=== PATIENT | male | born 1940 | race African-American/Black ===

== ENCOUNTER 2017-10-12 13:21 | Inpatient (IN) | payer MEDICARE, BC ==
[~2017-10-12] VITALS: Ht 185.4 cm; Wt 65.9 kg
[2017-10-12 15:43] LABS: BASOPHILS % (AUTO) 1.2 % (0.0-2.0); EOSINOPHILS % (AUTO) 0.5 % (0.0-3.0); HEMATOCRIT 41.8 % (42.0-52.0); HEMOGLOBIN 14.3 G/DL (14.2-18.0); LYMPHOCYTES % (AUTO) 23.1 % (20.0-45.0); MEAN CORPUSCULAR VOLUME 89 FL (80-99); MONOCYTES % (AUTO) 9.3 % (1.0-10.0); NEUTROPHILS % (AUTO) 65.9 % (45.0-75.0); PLATELET COUNT 141 K/UL (150-450); RED BLOOD COUNT 4.71 M/UL (4.70-6.10); RED CELL DISTRIBUTION WIDTH 11.5 % (11.6-14.8); WHITE BLOOD COUNT 3.6 K/UL (4.8-10.8)
[2017-10-12 16:28] LABS: ALANINE AMINOTRANSFERASE 45 U/L (12-78); ALBUMIN 4.2 G/DL (3.4-5.0); ALBUMIN/GLOBULIN RATIO 0.9 (1.0-2.7); ALKALINE PHOSPHATASE 57 U/L (46-116); ANION GAP 7 mmol/L (5-15); ASPARTATE AMINO TRANSFERASE 22 U/L (15-37); BILIRUBIN,TOTAL 0.5 MG/DL (0.2-1.0); BLOOD UREA NITROGEN 11 mg/dL (7-18); CALCIUM 9.4 MG/DL (8.5-10.1); CARBON DIOXIDE 29 MMOL/L (21-32); CHLORIDE 98 MMOL/L (98-107); CREATININE 0.7 MG/DL (0.55-1.30); POTASSIUM 4.1 MMOL/L (3.5-5.1); SODIUM 134 MMOL/L (136-145)
[2017-10-12] MEDS ORDERED: METOPROLOL SUCC25 MG ORAL (17:34)
[2017-10-12] MEDS ORDERED: PLAVIX75 MG PO (17:34)
[2017-10-12] MEDS ORDERED: SIMVASTATIN20 MG ORAL (17:34)
[2017-10-12] MEDS ORDERED: KLONOPIN0.5 MG ORAL (17:34)
[2017-10-12] MEDS ORDERED: ROZEREM8 MG PO (17:34)
[2017-10-12] MEDS ORDERED: ZANTAC150 MG ORAL (17:34)
[2017-10-12] MEDS ORDERED: VASOTEC20 MG ORAL (17:34)
[2017-10-12] MEDS ORDERED: CASODEX50 MG ORAL (17:34)
[2017-10-12] MEDS: Metoprolol Succinate XL 25mg tab ORAL SCH (19:00)
[2017-10-12 20:00] VITALS: BP 175/102
[2017-10-12] MEDS ORDERED: Donepezil 10mg tab ORAL SCH (21:00)
[2017-10-12 23:35] LABS: APPEARANCE,URINE CLEAR; BILIRUBIN, URINE NEGATIVE (NEGATIVE); COLOR,URINE PALE YELLOW; GLUCOSE, URINE (UA) NEGATIVE (NEGATIVE); KETONES,URINE NEGATIVE (NEGATIVE); LEUKOCYTE ESTERASE ,URINE NEGATIVE (NEGATIVE); NITRITE,URINE NEGATIVE (NEGATIVE); PH,URINE 7 (4.5-8.0); PROTEIN,URINE NEGATIVE (NEGATIVE); UROBILINOGEN,URINE NORMAL MG/DL (0.0-1.0)
[2017-10-13] VITALS: BP 148/85
[2017-10-13] MEDS ORDERED: Zolpidem 5mg tab ORAL PRN (00:15)
[2017-10-13 04:00] VITALS: BP 167/97
[2017-10-13] MEDS: HydrALAZINE 25mg tab ORAL PRN (04:46)
--- NOTE | 2017-10-13 05:00 | History and Physical Report ---
DATE OF ADMISSION: 10/12/2017 REASON FOR ADMISSION: Hypertensive urgency. HISTORY OF PRESENT ILLNESS: This is a 77-year-old male. He lives at home with his . He has a longstanding history of hypertensive cardiomyopathy and generalized atherosclerosis and has been on a medical therapy for many years that has kept his cardiovascular parameters quite stable. Of concern, his labile blood pressure over the past few weeks as noted by his based on home monitoring. He was seen in my office and continued to have labile blood pressure despite increasing medications and hospitalization has been initiated. The patient has been fully compliant with medications and diet. He has had increasing stress in his life over the past month. Specifically, he is having financial issues and problems with his home ownership and has been unable to sleep most nights due to what he perceives as monitoring of his home by police and investigators. PAST MEDICAL HISTORY: Includes hyperlipidemia, peripheral artery disease, atherosclerotic cardiovascular disease, history of cerebrovascular accident, and hypertension with hypertensive heart disease. ALLERGIES: Terazosin. FAMILY HISTORY: Noncontributory. SOCIAL HISTORY: Negative for smoking, alcohol, or substance abuse. MEDICATIONS: Prior to admission, reviewed and reconciled. REVIEW OF SYSTEMS: No fevers or chills. No cough. No sputum production. No history of blood clots in the legs or asthma. He has had a prior stroke with no residual. There is no history of seizures. He has not had any change in bowel habits. He does have prostatic hypertrophy. There is a history of prostate cancer in remission. There is no history of diabetes or thyroid impairment. History of mild carotid plaquing based on carotid duplex scan performed in the last year. PHYSICAL EXAMINATION: GENERAL: The patient is well developed, well nourished, no distress. Somewhat anxious. VITAL SIGNS: Blood pressure 188/102, pulse 60, respirations 20, and afebrile. HEENT: Normocephalic, atraumatic. Conjunctivae pink. Sclerae are anicteric. Oropharynx clear. Mucous membranes moist. NECK: Supple. Jugular venous pressure normal. Carotid upstrokes without delay. LUNGS: Clear. CHEST WALL: Without deformity. CARDIAC: Regular rhythm and rate. Normal S1, S2 with a fourth heart sound. ABDOMEN: Soft, nontender. No bruits. EXTREMITIES: No edema. NEUROLOGIC: Nonfocal. LABORATORY AND DIAGNOSTIC DATA: EKG as an outpatient revealed sinus rhythm with no acute abnormality. Echocardiogram yesterday at my office, normal ejection fraction, concentric hypertrophy, and minimal degenerative valve disease with no pulmonary hypertension. LABORATORY DATA: Laboratories pending. IMPRESSION: 1. Hypertensive urgency. 2. History of hyperlipidemia. 3. Generalized atherosclerosis. 4. History of cerebrovascular accident. 5. Anxiety. PLAN: 1. Cardiac monitoring. 2. Stepwise titration of antihypertensives. 3. Anxiolytics. 4. Psychiatric consultation. 5. Salt restriction. 6. DVT prophylaxis with subcutaneous heparin once blood pressure parameters have been stabilized. Rayo Carrillo M.D. DR: MELVI JOB#: [id number] CC:
[2017-10-13 08:00] VITALS: BP 147/89
[2017-10-13] MEDS: Aspirin Baby 81mg ORAL SCH (08:48)
[2017-10-13] MEDS: Metoprolol Succinate XL 25mg tab ORAL SCH (08:50)
[2017-10-13 12:00] VITALS: BP 156/88
--- NOTE | 2017-10-13 12:57 | Consultation ---
History of Present Illness General Date patient seen: Oct 13, 2017 Present Illness HPI 77-year-old male with hx of depression and anxiety, hypertensive, cardiomyopathy and generalized atherosclerosis. The pts was present. the pt was hard of hearing and per the pt has outburst of anger. In addition, the pt doesnt sleep well and stated that last night he was trowing up due to a new medication he took. Allergies: Coded Allergies: TERAZOSIN (Verified Allergy, Unknown, Hives, 10/12/17) Medication History Scheduled Bicalutamide (Casodex), 50 MG ORAL DAILY, (Reported) Clonazepam* (Klonopin*), 0.5 MG ORAL Q8HR, (Reported) Clopidogrel Bisulfate* (Plavix*), 75 MG PO DAILY, (Reported) Enalapril Maleate* (Vasotec*), 20 MG ORAL EVERY 12 HOURS, (Reported) Metoprolol Succinate* (Metoprolol Succinate*), 25 MG ORAL DAILY, (Reported) Ranitidine Hcl* (Zantac*), 150 MG ORAL TWICE A DAY, (Reported) Simvastatin (Zocor), 20 MG ORAL BEDTIME, (Reported) Miscellaneous Medications Ramelteon (Rozerem), 8 MG PO, (Reported) Patient History Limited by: medical condition History Provided By: Patient, Family Member, Medical Record, PMD Healthcare decision maker N Resuscitation status Full Code Advanced Directive on File Past Medical/Surgical History Past Medical/Surgical History: (1) Hypertensive urgency Review of Systems Psychiatric: Reports: prior hx, anxiety, depressed feelings Physical Exam General Appearance: no apparent distress, alert Neurologic: oriented x 3, responsive, depressed affect Last 24 Hour Vital Signs Date Time Temp Pulse Resp B/P (MAP) Pulse Ox O2 Delivery O2 Flow Rate FiO2 10/13/17 12:00 97.3 58 20 156/88 99 Room Air 97.3 10/13/17 08:50 65 147/89 10/13/17 08:50 147/89 10/13/17 08:00 97.1 65 20 147/89 99 Room Air 97.1 10/13/17 07:42 62 10/13/17 04:46 167/97 10/13/17 04:00 97.2 60 20 167/97 99 Room Air 97.2 10/13/17 04:00 55 10/13/17 00:00 58 10/13/17 00:00 97.5 66 20 148/85 100 Room Air 97.5 10/12/17 20:39 175/102 10/12/17 20:00 97.3 60 20 175/102 100 Room Air 97.3 10/12/17 20:00 64 10/12/17 19:01 188/102 10/12/17 19:00 60 10/12/17 16:07 54 Intake and Output 10/12/17 10/13/17 19:00 07:00 Intake Total 300 ml Output Total 150 ml Balance -150 ml 300 ml Intake Oral 300 ml Output Urine Total 150 ml # Voids 2 Laboratory Tests Test 10/12/17 15:30 10/12/17 23:12 White Blood Count 3.6 K/UL (4.8-10.8) L Red Blood Count 4.71 M/UL (4.70-6.10) Hemoglobin 14.3 G/DL (14.2-18.0) Hematocrit 41.8 % (42.0-52.0) L Mean Corpuscular Volume 89 FL (80-99) Mean Corpuscular Hemoglobin 30.4 PG (27.0-31.0) Mean Corpuscular Hemoglobin Concent 34.3 G/DL (32.0-36.0) Red Cell Distribution Width 11.5 % (11.6-14.8) L Platelet Count 141 K/UL (150-450) L Mean Platelet Volume 9.1 FL (6.5-10.1) Neutrophils (%) (Auto) 65.9 % (45.0-75.0) Lymphocytes (%) (Auto) 23.1 % (20.0-45.0) Monocytes (%) (Auto) 9.3 % (1.0-10.0) Eosinophils (%) (Auto) 0.5 % (0.0-3.0) Basophils (%) (Auto) 1.2 % (0.0-2.0) Sodium Level 134 MMOL/L (136-145) L Potassium Level 4.1 MMOL/L (3.5-5.1) Chloride Level 98 MMOL/L (98-107) Carbon Dioxide Level 29 MMOL/L (21-32) Anion Gap 7 mmol/L (5-15) Blood Urea Nitrogen 11 mg/dL (7-18) Creatinine 0.7 MG/DL (0.55-1.30) Estimat Glomerular Filtration Rate mL/min (>60) Glucose Level 101 MG/DL (74-106) Calcium Level 9.4 MG/DL (8.5-10.1) Magnesium Level 2.3 MG/DL (1.8-2.4) Total Bilirubin 0.5 MG/DL (0.2-1.0) Aspartate Amino Transf (AST/SGOT) 22 U/L (15-37) Alanine Aminotransferase (ALT/SGPT) 45 U/L (12-78) Alkaline Phosphatase 57 U/L (46-116) Troponin I 0.004 ng/mL (0.000-0.056) Total Protein 8.9 G/DL (6.4-8.2) H Albumin 4.2 G/DL (3.4-5.0) Globulin 4.7 g/dL Albumin/Globulin Ratio 0.9 (1.0-2.7) L Thyroid Stimulating Hormone (TSH) 1.318 uiU/mL (0.358-3.740) Urine Color Pale yellow Urine Appearance Clear Urine pH 7 (4.5-8.0) Urine Specific [place] 1.015 (1.005-1.035) Urine Protein Negative (NEGATIVE) Urine Glucose (UA) Negative (NEGATIVE) Urine Ketones Negative (NEGATIVE) Urine Occult Blood 2+ (NEGATIVE) H Urine Nitrite Negative (NEGATIVE) Urine Bilirubin Negative (NEGATIVE) Urine Urobilinogen Normal MG/DL (0.0-1.0) Urine Leukocyte Esterase Negative (NEGATIVE) Urine RBC 2-4 /HPF (0 - 0) H Urine WBC 0 /HPF (0 - 0) Urine Squamous Epithelial Cells Few /LPF (NONE/OCC) Urine Bacteria None /HPF (NONE) Height (Feet): 6 Height (Inches): 1.00 Weight (Pounds): 145 Medications Current Medications Medications (Trade) Dose Ordered Sig/Fe Route PRN Reason Start Time Stop Time Status Last Admin Dose Admin Aspirin (ASA) 81 mg DAILY ORAL 10/13/17 09:00 11/12/17 08:59 10/13/17 08:48 Clopidogrel Bisulfate (Plavix) 75 mg DAILY ORAL 10/13/17 09:00 11/12/17 08:59 10/13/17 08:50 Enalapril Maleate (Vasotec) 20 mg EVERY 12 HOURS ORAL 10/12/17 16:45 11/11/17 16:44 10/13/17 08:50 Famotidine (Pepcid) 20 mg DAILY ORAL 10/13/17 09:00 11/12/17 08:59 10/13/17 08:49 Hydralazine HCl (Apresoline) 25 mg Q6H PRN ORAL SBP above 160 10/12/17 17:00 11/11/17 16:59 10/13/17 04:46 Metoprolol Succinate (Toprol XL) 25 mg DAILY ORAL 10/12/17 16:45 11/11/17 16:44 10/13/17 08:50 Mirtazapine (Remeron) 15 mg Q24H ORAL 10/13/17 20:00 11/12/17 19:59 Ondansetron HCl (Zofran) 4 mg Q6H PRN IVP Nausea & Vomiting 10/13/17 02:15 11/12/17 02:14 10/13/17 12:20 Pravastatin Sodium (Pravachol) 20 mg BEDTIME ORAL 10/12/17 21:00 11/11/17 20:59 10/12/17 20:39 Zolpidem Tartrate (Ambien) 5 mg HSPRN PRN ORAL Insomnia 10/13/17 00:15 10/20/17 00:14 10/13/17 03:12 Assessment/Plan Assessment/Plan the pt has cognitive impairment and anxiety. He agreed to change his meds and requested to dc Arihenri. Anxiety d/o MDD -chase Valdovinos -chase Rozerem -start Evelyn Parker M.D. Oct 13, 2017 12:57
[2017-10-13 16:00] VITALS: BP 136/98
[2017-10-13 20:00] VITALS: BP 175/95
[2017-10-13] MEDS ORDERED: Gadavist 7.5mMol/7.5ml vial IV PRN ×3 (22:15)
[2017-10-14] VITALS: BP 163/86
--- NOTE | 2017-10-14 03:30 | Progress Note ---
DATE: 10/13/2017 CARDIOLOGY PROGRESS NOTE SUBJECTIVE: The patient continues to feel poorly. He has anxiety and insomnia. The patient continues to have nausea and episodes of vomiting. He has been unable eat today and continues to have very labile elevated blood pressure readings up to 175/95. Monitored rhythm sinus and sinus bradycardia. OBJECTIVE: GENERAL: No acute neurologic findings. NECK: Supple. LUNGS: Clear. CARDIAC: Regular normal S1, S2 with a fourth heart sound. ABDOMEN: Soft without edema. IMPRESSION: 1. Hypertensive urgency. 2. Cerebrovascular disease. 3. Anxiety. PLAN: 1. Psychiatric evaluation appreciated. 2. Continue titrating antihypertensives. 3. Obtain imaging studies of the central nervous system and central nervous vascular system. 4. Continue anti-platelet and anti-lipid therapy. 5. Cardiac monitoring. Rayo Carrillo M.D. DR: MELVI JOB#: [id number] CC:
[2017-10-14 04:00] VITALS: BP 150/78
[2017-10-14 08:00] VITALS: BP 148/76
[2017-10-14] MEDS: Metoprolol Succinate XL 25mg tab ORAL SCH (09:00)
[2017-10-14] MEDS: Aspirin Baby 81mg ORAL SCH (10:16)
--- NOTE | 2017-10-14 11:16 | General Progress Note ---
Assessment/Plan Status: progressing Assessment/Plan the pt has cognitive impairment and anxiety. Anxiety d/o MDD -dc Aricept -Remeron Subjective Date patient seen: Oct 14, 2017 Neurologic/Psychiatric: Reports: anxiety, depressed, emotional problems Allergies: Coded Allergies: TERAZOSIN (Verified Allergy, Unknown, Hives, 10/12/17) Subjective the pt is forgetful. he refused MRI. the pt is hard of hearing. He slept well. the pt didnt have any side effects Objective Last 24 Hour Vital Signs Date Time Temp Pulse Resp B/P (MAP) Pulse Ox O2 Delivery O2 Flow Rate FiO2 10/14/17 10:17 150/78 10/14/17 04:00 97.8 59 20 150/78 99 Room Air 97.8 10/14/17 04:00 58 10/14/17 00:00 98.0 58 20 163/86 99 Room Air 98.0 10/13/17 22:41 65 158/86 10/13/17 20:07 175/95 10/13/17 20:00 58 10/13/17 20:00 97.8 64 20 175/95 99 Room Air 97.8 10/13/17 16:00 97.2 61 20 136/98 98 Room Air 97.2 10/13/17 15:15 60 10/13/17 12:09 60 10/13/17 12:00 97.3 58 20 156/88 99 Room Air 97.3 Intake and Output 10/13/17 10/14/17 19:00 07:00 Intake Total 800 ml 700 ml Output Total 200 ml 600 ml Balance 600 ml 100 ml Intake Oral 800 ml IV Total 700 ml Output Urine Total 200 ml 600 ml # Voids 3 Height (Feet): 6 Height (Inches): 1.00 Weight (Pounds): 145 General Appearance: alert, moderate distress Neurologic: oriented x 3, responsive, depressed affect Evelyn Rendon M.D. Oct 14, 2017 11:16
[2017-10-14 16:00] VITALS: BP 144/83
[2017-10-14 20:00] VITALS: BP 145/75
--- NOTE | 2017-10-14 22:45 | Progress Note ---
DATE: 10/14/2017 CARDIOLOGY PROGRESS NOTE SUBJECTIVE: The patient's nausea has improved. No vomiting today. He is tolerating a diet. Blood pressure parameters are improving. No chest pain or shortness of breath. The patient is requested to defer MRI/MRA imaging at this time. OBJECTIVE: VITAL SIGNS: Blood pressure 144/83, pulse 82, respiratory rate 18, afebrile and room air oxygen saturation 99%. NECK: No bruits. Jugular venous pressure normal. LUNGS: Clear. CARDIAC: Regular rhythm rate. Normal S1 and S2 with a fourth heart sound. ABDOMEN: Soft and nontender. EXTREMITIES: Without edema. NEUROLOGIC: No focal neurologic deficits. Isolated at this time. IMPRESSION: 1. Hypertensive urgency, resolving. 2. Encephalopathy, improving. PLAN: 1. Taper off IV fluids. 2. Anxiolytics. 3. Continue titration of antihypertensives. 4. Discharge planning. 5. Maintain anti-lipid and anti-platelet therapy with LDL goal less than 100. Rayo Carrillo M.D. DR: ABEL JOB#: [id number] CC:
[2017-10-15] VITALS: BP 164/91
[2017-10-15] MEDS ORDERED: Milk of Magnesia 30ml Ud ORAL PRN (00:45)
[2017-10-15] MEDS ORDERED: ALPRAZolam 0.5mg tab ORAL SCH (01:00)
[2017-10-15 04:00] VITALS: BP 163/99
[2017-10-15] MEDS: HydrALAZINE 25mg tab ORAL PRN (04:41)
[2017-10-15 08:00] VITALS: BP 124/82
[2017-10-15] MEDS: Aspirin Baby 81mg ORAL SCH (09:25)
[2017-10-15] MEDS: Metoprolol Succinate XL 25mg tab ORAL SCH (09:30)
--- NOTE | 2017-10-15 11:05 | General Progress Note ---
Assessment/Plan Assessment/Plan the pt has cognitive impairment and anxiety. Anxiety d/o MDD -dc Aricept -Remeron Subjective Date patient seen: Oct 15, 2017 Neurologic/Psychiatric: Reports: anxiety, depressed Allergies: Coded Allergies: TERAZOSIN (Verified Allergy, Unknown, Hives, 10/12/17) Subjective the pt is forgetful.He slept well. the pt didnt have any side effects Objective Last 24 Hour Vital Signs Date Time Temp Pulse Resp B/P (MAP) Pulse Ox O2 Delivery O2 Flow Rate FiO2 10/15/17 09:30 89 124/82 10/15/17 09:30 89 124/82 10/15/17 09:26 124/82 10/15/17 08:00 83 10/15/17 08:00 98.1 89 20 124/82 99 Room Air 98.1 10/15/17 04:41 163/99 10/15/17 04:00 72 10/15/17 04:00 97.7 74 20 163/99 99 Room Air 97.7 10/15/17 00:00 64 10/15/17 00:00 97.9 66 20 164/91 99 Room Air 97.9 10/14/17 21:00 147/69 10/14/17 20:00 98.2 78 20 145/75 99 Room Air 98.2 10/14/17 20:00 83 10/14/17 16:00 82 10/14/17 16:00 98.1 78 18 144/83 99 Room Air 98.1 10/14/17 12:00 67 Intake and Output 10/14/17 10/15/17 19:00 07:00 Intake Total 1100 ml Balance 1100 ml Intake Oral 1100 ml # Voids 4 1 # Bowel Movements 1 Height (Feet): 6 Height (Inches): 1.00 Weight (Pounds): 145 Evelyn Rendon M.D. Oct 15, 2017 11:05
[2017-10-15 12:00] VITALS: BP 136/83
--- NOTE | 2017-10-15 15:21 | Diagnostic Imaging Report ---
Indication: History of hypertension. Nausea vomiting headache Technique: 3-D [id number] of the brain Comparison: None Findings: The midportion of the right M1 segment there is a small nodular focus of enhancement extending superiorly. On source images this appears to be the origin of a small vessel that extends from the M1 segment. On reconstructions, this has the appearance of a tiny aneurysm in the order of 1 to 2 mm. Suggest CTA for clarification. No significant stenosis, vascular malformation is identified. Flow-related enhancement of the major intracranial arteries demonstrated including the anterior, middle, and posterior cerebral arteries. Impression: Right M1 segment branch, which has the appearance of a tiny aneurysm on reconstructions. This is doubtful. However, suggest further evaluation with CTA for clarification.
--- NOTE | 2017-10-15 15:41 | Diagnostic Imaging Report ---
Indication: Syncope Technique: Study was performed in a 1.5 Humaira magnet. Gadolinium-enhanced MR angiography of the extracranial portions of both carotid arteries performed from the thoracic arch to the skull base. Maximum intensity projection images displayed in different projections. Comparison: None Findings: Right carotid: No high-grade carotid stenosis or occlusion identified. Left carotid: No significant stenosis is identified. Vertebral arteries below the skull base appear unremarkable. IMPRESSION: Normal MRA of the extracranial carotid arteries.
--- NOTE | 2017-10-15 16:35 | Diagnostic Imaging Report ---
Indication: Nausea, vomiting, syncope Technique: The head was imaged in a 1.5 Humaira magnet. Sequences obtained include sagittal and axial T1 FLAIR, axial T2 fast spin echo with fat saturation, axial T2 FLAIR, diffusion and ADC map. Gadolinium-enhanced axial and coronal T1 FLAIR obtained also. Comparison: None Findings: There is mild prominence of the sulci, ventricles, and basal cisterns consistent with atrophy. Mild, nonspecific T2 hyperintensity noted within white matter. This may be due to chronic small vessel disease. No abnormal enhancement is identified. There is no restricted diffusion. Jackson-white differentiation is normal. There is no mass effect, midline shift, edema, or hemorrhage. There are no abnormal extra-axial or intra-axial fluid collections. The corpus callosum and sella are unremarkable. The brainstem and cerebellum are unremarkable. Bone marrow signal within the visualized osseous structures appears age appropriate and unremarkable otherwise. There is mucosal thickening within the paranasal sinuses. Impression: No acute intracranial findings. No acute CVA, mass effect or edema. Age-related findings including atrophy and evidence of chronic small vessel disease involving white matter tracts. Sinusitis
--- NOTE | 2017-10-16 04:00 | Progress Note ---
DATE: 10/15/2017 CARDIOLOGY PROGRESS NOTE SUBJECTIVE: The patient's blood pressure control has improved. He has no chest pain or shortness of breath. He is more relaxed. There is slight cognitive impairment and anxiety noted. Imaging studies of the brain were completed today. MRA of the neck was normal. MRI of the head suggested possible small aneurysm in the M1 segment branch on the right. MRI of the brain revealed diffuse white matter disease with sinusitis. OBJECTIVE: VITAL SIGNS: Blood pressure 124/82, pulse 89, and respiratory rate 20. NECK: Supple. LUNGS: Clear. CARDIAC: Regular. Normal S1 and S2 with a fourth heart sound. ABDOMEN: Soft. EXTREMITIES: No edema. IMPRESSION: 1. Cerebrovascular atherosclerosis with mild dementia. 2. Malignant hypertension, now controlled. 3. Hyperlipidemia. PLAN: 1. Outpatient followup medications reviewed. 2. LDL goals discussed. 3. Anxiolytics and psychiatric regimen reviewed with Psychiatry. Rayo Carrillo M.D. DR: HAIM JOB#: [id number] CC:
--- NOTE | 2017-10-16 14:19 | Discharge Summary ---
Discharge Summary Discharge Summary _ DATE OF ADMISSION: 10/12/2017 DATE OF DISCHARGE: 10/15/2017 REASON FOR ADMISSION: 77 years old male with past medical history significant for hyperlipidemia, peripheral artery disease, atherosclerotic cardiovascular disease, history of cerebrovascular accident, hypertension, hypertensive heart disease, was sent to the hospital due to labile blood pressure over the past few weeks as noted by his , based on home monitoring. Patient was also seen at the primary care doctor office and continued to have labile blood pressure measurement, despite increasing medications. Hospitalization was initiated. Upon evaluation in the hospital, blood pressure 188/102, heart rate stable. Troponin negative. At the office, EKG revealed sinus rhythm, with no acute abnormality. Echocardiogram at the office showed normal ejection fracture with concentric hypertrophy and no pulmonary hypertension. Patient was admitted with diagnosis of hypertensive urgency, history of hyperlipidemia, generalized atherosclerosis , history of cerebrovascular accident and anxiety. CONSULTANTS: psychiatrist [facility]: Patient was admitted to telemetry floor. Patient started on stepwise titration of antihypertensive regimen. Diet with salt restriction provided. DVT prophylaxis provided. Antiplatelet and anti-lipid therapy continued along with statin, Patient had additional imaging . MRI of the brain revealed no acute intracranial pathology. Evidence of chronic small vessel disease was noted. MRA of the neck revealed normal MRA of the extracranial carotid artery Patient was counseled on salt restriction as well as the ow-fat low- cholesterol diet. \Goals of lipid therapy were discussed with patient. Psychiatric evaluation was requested. Anxiolytics provided on as needed basis. Psychiatrist diagnosed patient with major depressive disorder and anxiety disorder. Psychiatrist optimized psychiatric medication regimen . Aricept was discontinued, and patient started on Remeron. Patient clinically improved . Blood pressure stabilized with multiply antihypertensive medications. Patient was stable for discharge home. FINAL DIAGNOSES: Hypertensive urgency, resolved Hyperlipidemia Atherosclerosis with mild dementia Cerebrovascular disease Anxiety Encephalopathy, resolved Major depressive disorder Anxiety disorder DISCHARGE MEDICATIONS: See Medication Reconciliation list. DISCHARGE INSTRUCTIONS: Patient was discharged home. Follow up with primary care provider in one week I have been assigned to dictate discharge summary for this account. I was not involved in the patient's management. Lima Tam NP Oct 16, 2017 14:19
== END 2017-10-15 14:15 | disposition home or self-care (01) | DRG 304 ==
LOC: 2E 14:47
DX: I16.0 Hypertensive urgency (principal); G93.40 Encephalopathy, unspecified; F41.9 Anxiety disorder, unspecified; E78.5 Hyperlipidemia, unspecified; I73.9 Peripheral vascular disease, unspecified; I70.91 Generalized atherosclerosis; I11.9 Hypertensive heart disease without heart failure; Z86.73 Personal history of transient ischemic attack (TIA), and cerebral infarction without residual deficits; I25.10 Atherosclerotic heart disease of native coronary artery without angina pectoris; Z88.8 Allergy status to other drugs, medicaments and biological substances; Z85.46 Personal history of malignant neoplasm of prostate; F01.50 Vascular dementia, unspecified severity, without behavioral disturbance, psychotic disturbance, mood disturbance, and anxiety; F32.9 Major depressive disorder, single episode, unspecified
CPT/HCPCS: 36415; 70544; 70548; 70553; 80053; 81001; 83735; 84443; 84484; 85025; A9585; J2405